=== PATIENT | male | born 1955 | race Caucasian/White ===

== ENCOUNTER 2017-02-14 05:55 | Day surgery (SDC) | payer BC ==
[2017-02-14] MEDS ORDERED: LACTATED RINGERS 1,000 ML ONE (06:01)
[2017-02-14] MEDS ORDERED: PROPOFOL 200 MG/20 ML VIAL IV ONE (07:00)
[2017-02-14] MEDS ORDERED: LIDOCAINE 1% 10 ML VIAL INJ ONE (07:00)
[2017-02-14] MEDS ORDERED: MIDAZOLAM INJ 5 MG/5 ML VIAL ONE (08:33)
[2017-02-14] MEDS ORDERED: fentaNYL CITRATE INJ 50 MCG/ML AMP ONE (08:33)
[2017-02-14 09:06] VITALS: BP 91/55; TEMP 97.1; O2SAT 94
--- NOTE | 2017-02-14 09:52 | OP ---
DATE OF PROCEDURE: 02/14/17 PREPROCEDURE DIAGNOSIS: 1. History of colonic polyp 7 years ago. POSTPROCEDURE DIAGNOSIS: 1. No recurring colonic polyp. 2. Minimal diverticular disease. PROCEDURE: 1. Colonoscopy to the terminal ileum. SURGEON: Thor Wilburn MD. ANESTHESIA: Monitored anesthesia care. FINDINGS: With the patient under adequate sedation, the scope was introduced. Digital exam showed normal anal canal with no rectal masses, normal sized prostate. Minimal diverticulosis with small openings seen in the sigmoid colon area of no clinical significance. No significant spasm or mucosal changes. The descending colon was normal. Both flexures appear unremarkable. Transverse colon, ascending colon, and cecum were normal. The ileocecal valve was visualized. The terminal ileum was intubated. The terminal ileum appears normal. Appendix opening well seen. The colon preparation is good. The colon was examined to good advantage. All areas were clearly visualized. There are no areas of recurrent polyp. The patient tolerated the procedure well. The entire examination was within normal limits. Total scope withdrawal time was 6 minutes. FINAL IMPRESSION: 1. No evidence of any recurrent polyp. 2. Minimal diverticular disease. RECOMMENDATION: Repeat surveillance colonoscopy in 5 years #[id number] cc: Tj Cleveland MD [facility]
== END 2017-02-14 09:38 | disposition home or self-care (01) ==
LOC: AMB 05:55
PROVIDERS: ATTEND Internal Medicine Gastroenterology
DX: Z12.11 Encounter for screening for malignant neoplasm of colon (principal); K57.30 Diverticulosis of large intestine without perforation or abscess without bleeding; Z86.010 Personal history of colon polyps; K64.9 Unspecified hemorrhoids
CPT/HCPCS: 00810; 45378; J2250; J3010; J3490; J7120

== ENCOUNTER → 2019-01-23 | Outpatient (CLI) | payer BC | LOC: GMAE 12:01 | PROVIDERS: ATTEND Family Medicine | DX: Z00.01 Encounter for general adult medical examination with abnormal findings (principal) ==

== ENCOUNTER → 2019-01-27 | Outpatient (CLI) | payer BC ==
--- NOTE | 2019-01-27 14:39 | US ---
EXAM DESCRIPTION: Abdomen,Limited: ULTRASOUND. CLINICAL HISTORY: AAA COMPARISON: None. TECHNIQUE: Transabdominal scanning: adame-scale and Doppler modes. FINDINGS: Proximal abdominal aorta: 3.0 x 2.9 cm. Mid aorta 2.9 x 2.2 cm. Distal aorta 2.5 x 1.8 x 1.5 cm.. Left common iliac artery 10 mm. Right common iliac artery 10 mm. Minimal intimal wall thickening and calcification. 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 [facility] recommendations: No further imaging follow-up recommended. Electronically signed by: Tim Quevedo MD 01/27/2019 2:36 PM CDT
== END ==
LOC: US 09:16
PROVIDERS: ATTEND Family Medicine
DX: Z13.89 Encounter for screening for other disorder (principal); I77.811 Abdominal aortic ectasia

== ENCOUNTER → 2020-03-23 | Outpatient (CLI) | payer BC | LOC: GMAE 11:29 | PROVIDERS: ATTEND Family Medicine | DX: Z00.00 Encounter for general adult medical examination without abnormal findings (principal) ==